=== PATIENT | male | born 1960 | race Caucasian/White ===

== ENCOUNTER 2022-03-26 18:08 | Emergency (ER) | payer OTHER, MEDICAID ==
[~2022-03-26] VITALS: Ht 175.3 cm; Wt 125.2 kg
[2022-03-26 18:24] VITALS: BP 168/108
== END 2022-03-26 21:02 | disposition home or self-care (01) ==
LOC: ER 18:08
DX: Q17.9 Congenital malformation of ear, unspecified (principal)

== ENCOUNTER 2023-12-17 17:05 | Emergency (ER) | payer OTHER ==
[~2023-12-17] VITALS: Ht 175.3 cm; Wt 127.2 kg
[2023-12-17] MEDS ORDERED: METH4PAK PO (21:14)
[2023-12-17] MEDS ORDERED: METH-1182 PO (21:14)
[2023-12-17 21:23] VITALS: BP 127/86; PULSE 90; RESP 19; TEMP 98.6; O2SAT 95
[2023-12-17] MEDS: KETOROLAC TROMETH 60MG/2ML VIAL IM ONE (21:39)
== END 2023-12-17 22:36 | disposition home or self-care (01) ==
LOC: ER 17:05
DX: S43.401A Unspecified sprain of right shoulder joint, initial encounter (principal); Z88.8 Allergy status to other drugs, medicaments and biological substances; X50.1XXA Overexertion from prolonged static or awkward postures, initial encounter; Y93.89 Activity, other specified; Y92.89 Other specified places as the place of occurrence of the external cause; Y99.8 Other external cause status
CPT/HCPCS: 73030; 96372; 99283; J1885